=== PATIENT | male | born 1945 | race Caucasian/White ===

== ENCOUNTER 2016-11-07 13:32 | Emergency (ER) | payer OTHER, MEDICARE ==
[2016-11-07 13:40] VITALS: RESP 16; TEMP 97.3; O2SAT 97
--- NOTE | 2016-11-07 14:13 | EDPHY ---
H & P Stated Complaint: "dizzy spell this AM" Time Seen by Provider: 11/07/16 14:11 HPI/ROS: CHIEF COMPLAINT: Presyncope HISTORY OF PRESENT ILLNESS: The patient presents to the ED after an episode of presyncope which occurred earlier today while playing tennis. The patient reported that he did not actually lose consciousness. He had no chest pain or shortness of breath. Patient reportedly had a similar episode several years ago. He had a workup at that point time including stress test, echocardiogram and Holter monitor all of which were negative. The patient is now entirely asymptomatic. The patient does endorse some symptoms of increased activity and may have been slightly dehydrated today. The patient had no symptoms of numbness, weakness, headache, fever or recent illness. The patient denies additional acute complaints. REVIEW OF SYSTEMS: A comprehensive 10 point review of systems is otherwise negative aside from elements mentioned in the history of present illness. Source: Patient Exam Limitations: No limitations - Personal History Current Tetanus/Diphtheria Vaccine: Yes Current Tetanus Diphtheria and Acellular Pertussis (TDAP): Yes - Medical/Surgical History Hx Asthma: No Hx Chronic Respiratory Disease: No Hx Diabetes: No Hx Cardiac Disease: No Hx Renal Disease: No Hx Cirrhosis: No Hx Alcoholism: No Hx HIV/AIDS: No Hx Splenectomy or Spleen Trauma: No Other PMH: high chol. - Social History Smoking Status: Never smoked - Physical Exam Exam: General Appearance: Alert, no distress Eyes: Pupils equal and round no pallor or injection ENT, Mouth: Mucous membranes moist Respiratory: There are no retractions, lungs are clear to auscultation Cardiovascular: Regular rate and rhythm Gastrointestinal: Abdomen is soft and nontender, no masses, bowel sounds normal Neurological: A&O, normal motor function, normal sensory exam, normal cranial nerves Skin: Warm and dry, no rashes Musculoskeletal: Neck is supple nontender Extremities: symmetrical, full range of motion Constitutional: Initial Vital Signs Temperature (C) 36.3 C 11/07/16 13:37 Heart Rate 59 L 11/07/16 13:37 Respiratory Rate 16 11/07/16 13:37 Blood Pressure 137/97 H 11/07/16 13:37 O2 Sat (%) 97 11/07/16 13:37 O2 Delivery Mode Room Air Allergies/Adverse Reactions: No Known Allergies Allergy (Unverified 11/07/16 13:39) Medical Decision Making - Diagnostics EKG Interpretation: EKG: Complete interpretation has been separately recorded in the [facility] archive. Summary impression: Sinus rhythm ED Course/Re-evaluation: Additional database: Troponin within normal limits. The patient presents to the ED after an episode of presyncope. The patient's EKG demonstrates no evidence of ischemia. His troponin is normal. The patient' s laboratory studies are within normal limits. The patient did receive 1 L of normal saline. The patient was placed on a rn cardiac rehab and had no evidence of arrhythmia. The patient has no risk factors for coronary artery disease. I discussed with the patient workup in the ED in plans moving forward. The patient would like to be discharged home and follow up with Cardiology as an outpatient. He does understand to return to the emergency department for any chest pain, shortness of breath, difficulty breathing or other concerns. Discussion: The patient presents to the ED with presyncope likely secondary to dehydration. Differential Diagnosis: Differential diagnosis considered includes acute coronary syndrome, metabolic abnormality, dehydration, vasovagal episode, renal failure, anemia - Data Points Laboratory Results: Laboratory Results 11/07/16 14:28 11/07/16 14:33 Medications Given: Discontinued Medications Sodium Chloride (Ns) 1,000 mls @ 0 mls/hr IV ONCE ONE; Wide Open PRN Reason: Protocol Stop: 11/07/16 14:34 Last Admin: 11/07/16 15:29 Dose: 1,000 mls Departure - Departure Disposition: Home, Routine, Self-Care Clinical Impression: Pre-syncope Condition: Good Instructions: Hypotension (ED) Additional Instructions: 1. The testing done in the emergency department today looks within normal limits. 2. I do recommend close follow up with Cardiology for additional workup. 3. Please return to the ED for any chest pain, difficulty breathing or other concerns. Referrals: Leroy Petersen MD [Medical Doctor] - As per Instructions
--- NOTE | 2016-11-07 14:16 | CPEKG ---
Heart Rate: 49 RR Interval: 1224 P-R Interval: 192 QRSD Interval: 86 QT Interval: 404 QTC Interval: 365 P [place]: 60 QRS [place]: -47 T Wave [place]: -6 EKG Severity - ABNORMAL ECG - EKG Impression: SINUS BRADYCARDIA EKG Impression: LAD, CONSIDER LEFT ANTERIOR FASCICULAR BLOCK EKG Impression: PROBABLE ANTEROSEPTAL INFARCT, OLD EKG Impression: BORDERLINE T ABNORMALITIES, INFERIOR LEADS Electronically Signed By: Luis Lopez 07-Nov-2016 21:04:36
[2016-11-07] MEDS ORDERED: NS 1,000 ML IV ONE (14:33)
[2016-11-07 14:48] LABS: % IMMATURE GRANULYOCYTES 0.1 % (0.0-1.1); ABSOLUTE IMMATURE GRANULOCYTES 0.01 10^3/uL (0.00-0.10); ADD DIFF? NO; ADD MORPH? NO; ADD SCAN? NO; ATYPICAL LYMPHOCYTE FLAG 0 (0-99); FRAGMENT RBC FLAG 0 (0-99); HEMATOCRIT 43.1 % (40.0-51.0); HEMOGLOBIN 14.8 g/dL (13.7-17.5); LEFT SHIFT FLG 0 (0-99); LIPEMIA HEMOLYSIS FLAG 90 (0-99); MEAN CELL HEMOGLOBIN 31.4 pg (27.9-34.1); MEAN CELL HEMOGLOBIN CONCENTR. 34.3 g/dL (32.4-36.7); MEAN CELL VOLUME 91.3 fL (81.5-99.8); MEAN PLATELET VOLUME 10.8 fL (8.7-11.7); PLATELET CLUMPS FLAG 0 (0-99); PLATELET COUNT 207 10^3/uL (150-400); RED BLOOD CELL COUNT 4.72 10^6/uL (4.40-6.38); RED CELL DISTRIBUTION WIDTH 13.5 % (11.5-15.2)
[2016-11-07 15:09] LABS: ANION GAP 11 mEq/L (8-16); CALCIUM 9.7 mg/dL (8.5-10.4); CARBON DIOXIDE 20 mEq/l (22-31); CHLORIDE 109 mEq/L (97-110); CREATININE 1.1 mg/dL (0.7-1.3); GLOMERULAR FILTRATION RATE > 60; GLUCOSE 82 mg/dL (70-100); POTASSIUM 4.5 mEq/L (3.5-5.2); SODIUM 140 mEq/L (134-144)
[2016-11-07 15:21] LABS: TROPONIN I < 0.012 ng/mL (0-0.034)
--- NOTE | 2016-11-07 15:48 | ECHO ---
[id number] + + [address] : : [place] [address] : : [phone] + + Adult Echocardiographic Report + ---+ :Name: ALISSA GODINEZ WStudy Date: 11/07/2016 02:54 PM : : Hospital Admission Number: [id number] Location: ER: :: 1945 Gender: Male Height: 68 in : :Age: 71 yrs Weight: 155 lb : :Reason For Study: Dizziness : : BSA: 1.8 meters2 : + ---+ MMode/2D Measurements \T\ Calculations IVSd: 0.92 cm LVIDd: 5.4 cm FS: 44.0 % Ao root diam: LVPWd: 0.89 cm LVIDs: 3.0 cm EDV(Teich): 4.4 cm 143.1 ml LA dimension: ESV(Teich): 3.2 cm 36.2 ml EF(Teich): 74.7 % LVLd ap4: 8.1 cm SV(MOD-sp4): EDV(MOD-sp4): 58.0 ml 87.0 ml LVLs ap4: 7.1 cm ESV(MOD-sp4): 29.0 ml EF(MOD-sp4): 66.7 % Normal Measurement Values: + + :LVIDd (3.5-5.7cm) IVSd (0.6-1.1cm) LVPWd (0.6-1.1cm) Aortic Root (2.0-3.7cm)Left Atrium (1.5-4.0cm): :LV Vol(d) (76-115ml) LV Vol(s) (29-48ml) Ejec Fraction (50-65%)PV Adiel (0.6- 1.2m/s) TV Adiel (0.4-1.0m/s) : :MV E Adiel (0.8-1.0m/s)MV A Adiel (0.3-1.0m/s)LVOT Adiel (0.7-1.2m/s) Asc Ao Adiel ( 0.9-1.8m/s) : + + Doppler Measurements \T\ Calculations MV E max adiel: 50.8 cm/sec Ao V2 max: 107.0 cm/sec TR max adiel: 200.0 cm/sec MV A max adiel: 61.7 cm/sec Ao max P.6 mmHg TR max P.0 mmHg MV E/A: 0.82 RAP systole: 5.0 mmHg RVSP(TR): 21.0 mmHg Left Ventricle The left ventricle is normal in size. There is normal left ventricular wall thickness. Left ventricular systolic function is normal. Ejection Fraction = 60-65%. No regional wall motion abnormalities noted. Right Ventricle The right ventricle is normal in size and function. Atria The left atrial size is normal. Right atrial size is normal. The interatrial septum is intact with no evidence for an atrial septal defect. Mitral Valve The mitral valve is normal in structure and function. There is no evidence of mitral valve prolapse. There is no mitral valve stenosis. There is mild mitral regurgitation. Tricuspid Valve Normal tricuspid valve. There is trace tricuspid regurgitation. Aortic Valve The aortic valve is trileaflet. The aortic valve opens well. There is no aortic stenosis. There is no aortic insufficiency. Pulmonic Valve The pulmonic valve is normal in structure and function. Trace pulmonic valvular regurgitation. Great Vessels The aortic root is normal size. Borderline dilated ascending aorta. Pericardium/Pleural There is no pericardial effusion. Conclusion A complete two-dimensional transthoracic echocardiogram was performed (2D, M-mode, Doppler and color flow Doppler). Left ventricular systolic function is normal. Ejection Fraction = 60-65%. Normal appearing valvular structures. There is mild mitral regurgitation. There is trace tricuspid regurgitation. Trace pulmonic valvular regurgitation. Borderline dilated ascending aorta. Final Reading Physician: Emily Beebe signed on 11/07/2016 03:47 PM Ordering Physician: Austen Dior Performed By: Bety Barragan RDCS
[2016-11-07 16:10] VITALS: BP 133/87; PULSE 55
== END 2016-11-07 16:08 | disposition home or self-care (01) ==
DX: R55 Syncope and collapse (principal); E86.9 Volume depletion, unspecified